=== PATIENT | female | born 1980 | race Caucasian/White ===

== ENCOUNTER 2017-01-07 | Outpatient (CLI) | payer OTHER ==
--- NOTE | 2017-01-17 11:27 | P.MSEPDOC ---
Presenting Problems - Arrival Data Date of Arrival on Unit: 01/07/17 Time of Arrival on Unit: 17:15 Mode of Transport: Ambulatory - Complaint OB-Reason for Admission/Chief Complaint: Decreased Movement Medical History - Information : 4 Para: 2 Term: 2 : 0 Abortions: Spontaneous or Elective: 1 Number of Living Children: 2 - Gestational Age Gestational Age by RUBINA (wks/days): 24 Weeks and 1 Days Review of Systems - Review of Systems Constitutional: No problems Breast: No problems ENT: No problems Cardiovascular: No problems Respiratory: No problems Gastrointestinal: No problems Genitourinary: No problems Musculoskeletal: No problems Neurological: No problems Skin: No problems Vital Signs - Temperature Temperature: 97.0 F Temperature Source: Temporal Artery Scan - Pulse Pulse Oximetery Pulse Rate: 85 Pulse Assessment Method: Pulse Oximetry - Respirations Respiratory Rate: 16 Oxygen Delivery Method: Room Air O2 Sat by Pulse Oximetry: 97 - Blood Pressure Right Arm Blood Pressure: 101/56 Blood Pressure Mean: 71 Blood Pressure Source: Automatic Cuff Medical Screen Scoring (Pre) - Cervical Exam Dilation: Exam Deferred - Uterine Contractions Frequency: N/A Duration: N/A Intensity: N/A - Maternal Vital Signs Maternal Temperature: N/A Maternal Blood Pressure: N/A Signs of Preeclampsia: N/A Maternal Respirations: N/A - Maternal Trauma Maternal Trauma: N/A - Assessment Baseline FHR: 145 Heart Rate - NICHD Category: Category I (Normal) = 0 NST: Reactive Position: N/A Station: N/A - Total Score Total Score (Pre): 0 - Level of Risk Level of Risk: Low (0-5) Medical Screen Scoring (Post) - Post Treatment Level of Risk Post Treatment Level of Risk: Low (0-5) Physician Notification (Post) - Physician Notified Physician Notified Date: 01/07/17 Physician Notified Time: 18:01 Spoke With: Dr Walker New Order Received: Yes - Notification Comment Comment: pt here for decreased movement. fht reasurring and baby is now moving per pt. Disposition - Disposition OB Disposition: Discharge to home Discharge Date: 01/07/17 Discharge Time: 16:10 I agree with the RN Medical Screening Exam: Yes Risk & Benefit of care provided described in d/c instruction: Yes Diagnosis: DECREASED MOVEMENTS, UNSP TRIMESTER, UNSP
== END 2017-01-07 18:10 | disposition home or self-care (01) ==
CPT/HCPCS: 99213

== ENCOUNTER 2017-01-11 08:25 | Emergency (ER) | payer OTHER ==
--- NOTE | 2017-01-11 08:54 | ED ---
URI HPI - General Chief Complaint: Upper Respiratory Infection Stated Complaint: cough Time Seen by Provider: 01/11/17 08:31 Source: patient, RN notes reviewed Mode of arrival: ambulatory Limitations: no limitations - History of Present Illness Initial Comments: 36-year-old female presents emergency Department chief complaint cough and congestion. Patient states started 3 days ago. Patient states that she does have a history of asthma and states that she uses her pro-air inhaler though she reports an ALLERGY to albuterol. Patient states she breaks out in hives from this. Patient denies fever, chills, headache, dizziness, chest pain. Patient states she does get and some cough is and which she has shortness of breath but she has no resting shortness of breath and no exertional shortness of breath. Patient states she is approximately 25 weeks along. Patient states her cough is nonproductive she states she actually is more sinus congestion than anything. She has not tried any [id number] cough and cold medications. - Related Data Home Medications Medication Instructions Recorded Confirmed Pnv,Calcium 72/Iron/Folic Acid 1 01/07/17 [ Plus Tablet] Allergies Allergy/AdvReac Type Severity Reaction Status Date / Time albuterol sulfate Allergy Rash/Hives/ Verified 01/11/17 08:30 [From Proventil HFA] SWELLING dimenhydrinate Allergy Swelling Verified 01/11/17 08:30 [From Dramamine] diphenhydramine HCl Allergy Rash/Hives Verified 01/11/17 08:30 [From Benadryl] latex Allergy Rash/Hives/ Verified 01/11/17 08:30 ITCHING meclizine Allergy Rash/Hives Verified 01/11/17 08:30 Review of Systems ROS Statement: Those systems with pertinent positive or pertinent negative responses have been documented in the HPI. ROS Other: All systems not noted in ROS Statement are negative. Past Medical History Past Medical History: Asthma History of Any Multi-Drug Resistant Organisms: None Reported Past Surgical History: Adenoidectomy, Ear Surgery Additional Past Surgical History / Comment(s): D&C Past Anesthesia/Blood Transfusion Reactions: No Reported Reaction Past Psychological History: No Psychological Hx Reported Smoking Status: Never smoker - Past Family History Mother Family Medical History: Cancer General Exam Limitations: no limitations General appearance: alert, in no apparent distress Head exam: Present: atraumatic, normocephalic, normal inspection Eye exam: Present: normal appearance, PERRL, EOMI. Absent: scleral icterus, conjunctival injection, periorbital swelling ENT exam: Present: normal exam, normal oropharynx, mucous membranes moist, TM's normal bilaterally, normal external ear exam Neck exam: Present: normal inspection, full ROM. Absent: tenderness, meningismus, lymphadenopathy Respiratory exam: Present: normal lung sounds bilaterally. Absent: respiratory distress, wheezes, rales, rhonchi, stridor Cardiovascular Exam: Present: regular rate, normal rhythm, normal heart sounds. Absent: systolic murmur, diastolic murmur, rubs, gallop, clicks GI/Abdominal exam: Present: soft, normal bowel sounds. Absent: distended, tenderness, guarding, rebound, rigid Course Vital Signs 01/11/17 01/11/17 08:28 08:41 Temperature 97.0 F L Pulse Rate 81 Respiratory 18 18 Rate Blood Pressure 105/61 O2 Sat by Pulse 100 Oximetry Medical Decision Making - Medical Decision Making 36-year-old male presents emergency room for cough congestion 2 days. Patient has a URI there is no evidence of acute bacterial infection. Patient's chest x- ray shows no acute abnormality. Patient advised take [id number] medications approved by her [employer]OR return parameters were discussed. Disposition Clinical Impression: Upper respiratory infection Disposition: HOME SELF-CARE Condition: Stable Instructions: Upper Respiratory Infection (ED) Additional Instructions: Please return to the Emergency Department if symptoms worsen or any other concerns. Referrals: Tyler Zhao MD [Primary Care Provider] - 1-2 days Time of Disposition: 09:46
--- NOTE | 2017-01-11 09:23 | XR ---
EXAMINATION TYPE: XR chest 2V DATE OF EXAM: 01/11/2017 HISTORY: cough. REFERENCE: Previous study dated 05/21/2015. FINDINGS: The lungs are clear. Pleural spaces are clear. The heart is not enlarged.. IMPRESSION: NORMAL CHEST.
[2017-01-11 09:55] VITALS: BP 88/51; PULSE 82; RESP 16; TEMP 98.6
== END 2017-01-11 10:12 | disposition home or self-care (01) ==
LOC: EC 08:25
DX: O99.512 Diseases of the respiratory system complicating pregnancy, second trimester (principal); J06.9 Acute upper respiratory infection, unspecified; Z79.899 Other long term (current) drug therapy; Z88.8 Allergy status to other drugs, medicaments and biological substances; Z91.040 Latex allergy status; Z3A.25 25 weeks gestation of pregnancy
CPT/HCPCS: 71020; 99283

== ENCOUNTER 2017-04-28 06:30 | Inpatient (IN) | payer OTHER ==
[2017-04-28] MEDS ORDERED: LIDOCAINE 1% (PF) 10 MG/ML (30 ML SDV) SQ PRN (06:55)
[2017-04-28] MEDS ORDERED: OXYTOCIN 10 UNIT/ML 1 ML VIAL IM PRN (06:55)
[2017-04-28] MEDS ORDERED: PENICILLIN G POTASSIUM 5,000,000 UNIT in DEXTROSE 5% IN WATER 100 ML IVPB STA ×2 (06:55)
[2017-04-28] MEDS ORDERED: CARBOPROST TROMETHAMINE 250 MCG/ML 1 ML AMP IM PRN (06:55)
[2017-04-28] MEDS ORDERED: METHYLERGONOVINE 0.2 MG/ML 1 ML AMP IM PRN (06:55)
[2017-04-28] MEDS ORDERED: OXYTOCIN 20 UNITS/1000 ML NS 1,000 ML IV SCH ×2 (07:00→10:45)
[2017-04-28] MEDS: LACTATED RINGERS 1,000 ML IV SCH ×2 (07:09→20:42)
[2017-04-28 07:24] VITALS: BMI 24.1
[2017-04-28 07:59] LABS: Basophils % (A) 0 %; Eosinophils # (A) 0.1 k/uL (0-0.7); Eosinophils % (A) 1 %; HCT 35.2 % (34.0-46.0); HGB 11.4 gm/dL (11.4-16.0); Lymphocytes # (A) 1.5 k/uL (1.0-4.8); Lymphocytes % (A) 14 %; MCH 29.1 pg (25.0-35.0); MCHC 32.3 g/dL (31.0-37.0); Mean Platelet Volume 7.7; Monocytes # (A) 0.5 k/uL (0-1.0); Monocytes % (A) 5 %; Neutrophils # (A) 8.6 k/uL (1.3-7.7); Neutrophils % (A) 79 %; Platelet Count 177 k/uL (150-450); RBC 3.92 m/uL (3.80-5.40); RDW 14.5 % (11.5-15.5); WBC 10.9 k/uL (3.8-10.6)
[2017-04-28] MEDS ORDERED: BUTORPHANOL 1 MG/ML 1 ML VIAL IV PRN (08:42)
--- NOTE | 2017-04-28 08:48 | P.HPOB ---
History of Present Illness H&P Date: 04/28/17 Chief Complaint: 39+ weeks, elective induction The patient is a 36-year-old 4 para 1112 admitted at 39-3/7 weeks as established by a 16 week ultrasound done in [place]. She is admitted for elective induction of labor with all signs reassuring. Her has been uncomplicated aside from initial difficulty in dating the . She did test positive for group B strep. On labor and delivery, she is undergone artificial rupture of membranes demonstrating clear fluid. Obstetrical history 4 para 1112 with 1 term delivery without complications and one 35 week delivery additionally without complications. Current statistics are listed in history of present illness. EDC of 05/02/2017 was established by 16 week ultrasound. Laboratory workup on straights of blood type of A+ with a negative antibody screen. Rubella status is nonimmune. The remainder of her laboratory workup was within normal limits. One hour Glucola was normal and group B strep is positive. Gynecologic history is unremarkable with no history of infections to include STDs recently. Review of Systems Review of systems is confined to history of present illness. Past Medical History Past Medical History: No Reported History, Asthma Additional Past Medical History / Comment(s): Hypoglycemia History of Any Multi-Drug Resistant Organisms: None Reported Past Surgical History: Adenoidectomy, Ear Surgery Additional Past Surgical History / Comment(s): D&C Past Anesthesia/Blood Transfusion Reactions: No Reported Reaction Past Psychological History: No Psychological Hx Reported Smoking Status: Never smoker Past Alcohol Use History: None Reported Additional Past Alcohol Use History / Comment(s): QUIT SMOKIN 2010, STARTED SMOKING AGE 18, LESS THAN A PACK A WEEK Past Drug Use History: None Reported - Past Family History Mother Family Medical History: Cancer Medications and Allergies Home Medications Medication Instructions Recorded Confirmed Type Ergocalciferol (Vitamin D2) 50,000 unit PO DAILY 03/12/17 04/28/17 History [Vitamin D2] Loratadine [Claritin] 10 mg PO DAILY 03/12/17 04/28/17 History Omeprazole [PriLOSEC] 40 mg PO DAILY 03/12/17 04/28/17 History Pedi Multivit No.25/Folic Acid 1 tab PO DAILY 04/28/17 04/28/17 History [Flintstones Multivit Chew Tab] Allergies Allergy/AdvReac Type Severity Reaction Status Date / Time albuterol sulfate Allergy Rash/Hives/ Verified 04/28/17 06:52 [From Proventil HFA] SWELLING dimenhydrinate Allergy Swelling Verified 04/28/17 06:52 [From Dramamine] diphenhydramine HCl Allergy Rash/Hives Verified 04/28/17 06:52 [From Benadryl] latex Allergy Rash/Hives/ Verified 04/28/17 06:52 ITCHING meclizine Allergy Rash/Hives Verified 04/28/17 06:52 Exam - Vital Signs Vital signs: Vital Signs Temp Pulse Resp BP Pulse Ox 04/28/17 07:17 97.6 F 82 16 109/64 98 Intake and Output 04/27/17 04/28/17 04/28/17 22:59 06:59 14:59 Other: Weight 59.874 kg 59.874 kg Patient Weight 04/29/17 06:59 Weight 59.874 kg In general, this is a well-developed, well-nourished white female in no acute distress. Her heart has a regular rhythm and rate without murmur. Her lungs are clear to auscultation bilaterally in all rush. Her abdomen is gravid, nondistended, has normal active bowel sounds, is soft, nontender, and without any palpable masses aside from the uterine fundus. Her extremities are without any cyanosis, clubbing, or edema and are nontender to palpation bilaterally. Digital cervical examination demonstrates her cervix to be 3+ centimeters dilated, 70% effaced, with the vertex in presentation at -1-2 station. Artificial rupture of membranes is carried out demonstrating clear fluid. Results Result Diagrams: 04/28/17 06:57 Abnormal Lab Results - Last 24 Hours (Table) 04/28/17 Range/Units 06:57 WBC 10.9 H (3.8-10.6) k/uL Neutrophils # 8.6 H (1.3-7.7) k/uL Assessment and Plan (1) Term Current Visit: Yes Status: Acute Code(s): Z34.80 - ENCOUNTER FOR SUPRVSN OF NORMAL , UNSP TRIMESTER SNOMED Code(s): 36155913 (2) Group B streptococcal carriage complicating Current Visit: Yes Status: Acute Code(s): O99.820 - STREPTOCOCCUS B CARRIER STATE COMPLICATING SNOMED Code(s): 915874901728272 Plan: The patient has been admitted for elective induction of labor understanding the slightly increased risk for delivery. Pitocin augmentation has been started and antibody prophylaxis started for group B strep as well. She will have close maternal and surveillance and expectant management will be practiced. She is a good candidate for either IV or epidural analgesia, whichever she may choose.
[2017-04-28] MEDS ORDERED: ZOLPIDEM 5 MG TAB PO PRN (10:35)
[2017-04-28] MEDS ORDERED: BENZOCAINE/MENTHOL SPRAY 1 GM/SPRAY AEROSOL TOPICAL PRN (10:35)
[2017-04-28] MEDS ORDERED: WITCH HAZEL 1 EACH MED..PAD TOPICAL PRN (10:35)
[2017-04-28] MEDS ORDERED: SIMETHICONE 80 MG CHEWABLE PO PRN (10:35)
[2017-04-28] MEDS ORDERED: ACETAMINOPHEN TAB 325 MG TAB PO PRN (10:35)
[2017-04-28] MEDS ORDERED: HYDROCORTISONE 2.5% RECTAL CREAM 30 GM TUBE RECTAL PRN (10:35)
[2017-04-28] MEDS ORDERED: IBUPROFEN 600 MG TAB PO PRN (10:35)
[2017-04-28] MEDS ORDERED: Acetaminophen-Codeine 300-30mg TAB PO PRN ×2 (10:35)
--- NOTE | 2017-04-28 10:43 | P.PROBDLV ---
Vaginal Delivery Note - . Vaginal Delivery Note: The patient is a 36-year-old 4 para 1112 admitted at 39-3/7 weeks by second trimester ultrasound. She is admitted for elective induction with all signs reassuring. Her has been essentially uncomplicated though she did of have late onset of care and some issues with dating the when she first arrived. Is ultimately cleared up after retrieval of an ultrasound at 17 weeks done in [place]. On labor and delivery, all signs were reassuring as noted above. She had Pitocin augmentation started and underwent artificial rupture of membranes demonstrating clear fluid. She had previously had antibody prophylaxis started for group B strep positivity. She made rapid progress through the latent and active phase of labor to complete and then pushed over the course of 2 contractions to a normal spontaneous vaginal delivery of a viable 6 lbs. 8 oz. baby boy with Apgars of 9 at 1 minute and 9 at 5 minutes delivered in the direct occiput anterior position. The placenta was delivered spontaneously, intact, and grossly normal with a grossly normal three-vessel cord inserted approximately 3-4 cm from the margin of the placental disc. There were no lacerations of the perineum, vagina, or cervix. Estimated blood loss for the case was 250 mL. There were no complications. All sponge, instrument, and needle counts were correct. Both mother and infant are resting comfortably in recovery though the has been taken to the nursery to be drawn for group B strep labs.
[2017-04-28] MEDS ORDERED: PENICILLIN G POTASSIUM 2,500,000 UNIT in DEXTROSE 5% IN WATER 100 ML IVPB SCH ×2 (11:00)
[2017-04-28] MEDS ORDERED: MEASLES-MUMPS-RUBELLA VACC/PF 12,500 UNIT/0.5 ML VIAL SQ ONE (12:01)
[2017-04-28] MEDS: SENNOSIDES-DOCUSATE SODIUM 1 EACH TAB PO SCH (20:42)
--- NOTE | 2017-04-29 10:58 | P.PNOBGVD ---
Subjective - Subjective Patient reports: Reports appetite normal, Reports voiding normally, Reports pain well controlled, Reports ambulating normally : doing well Objective - Latest Vital Signs Latest vital signs: Vital Signs Temp Pulse Resp BP Pulse Ox 04/29/17 08:00 98.2 F 87 16 128/54 04/29/17 04:00 98.1 F 87 18 117/52 04/29/17 00:00 98.0 F 76 16 112/55 04/28/17 20:00 97.4 F L 72 16 100/59 04/28/17 16:00 99 F 82 16 98/57 04/28/17 12:32 97.8 F 79 17 99/50 99 04/28/17 12:02 67 18 95/61 04/28/17 11:32 73 18 100/59 04/28/17 11:17 68 18 96/52 04/28/17 11:02 64 17 100/59 - Exam Extremities: Present: normal Abdomen: Present: normal appearance, soft Uterus: Present: normal, firm (The uterine fundus as tonic and nontender below the umbilicus.) Assessment and Plan (1) Term Current Visit: Yes Status: Acute Code(s): Z34.80 - ENCOUNTER FOR SUPRVSN OF NORMAL , UNSP TRIMESTER SNOMED Code(s): 13111574 (2) Group B streptococcal carriage complicating Current Visit: Yes Status: Acute Code(s): O99.820 - STREPTOCOCCUS B CARRIER STATE COMPLICATING SNOMED Code(s): 980075081468076 (3) Normal spontaneous vaginal delivery Current Visit: Yes Status: Acute Code(s): O80 - ENCOUNTER FOR FULL-TERM UNCOMPLICATED DELIVERY SNOMED Code(s): 49404950 Plan: As the infant is being observed for 48 hours secondary to inadequate antibiotic prophylaxis for group B strep, the patient will remain in the hospital until tomorrow morning at which time she will likely be discharged pending complications. Continue routine care.
[2017-04-29] MEDS: SENNOSIDES-DOCUSATE SODIUM 1 EACH TAB PO SCH ×2 (23:02→23:03)
[2017-04-30 08:16] VITALS: RESP 16
[2017-04-30] MEDS: SENNOSIDES-DOCUSATE SODIUM 1 EACH TAB PO SCH (08:16)
--- NOTE | 2017-04-30 08:40 | P.DS ---
Providers Date of admission: 04/28/17 06:30 Expected date of discharge: 04/30/17 Attending physician: Xander Walker Primary care physician: Tyler Zhao - Discharge Diagnosis(es) (1) Term Current Visit: Yes Status: Acute (2) Group B streptococcal carriage complicating Current Visit: Yes Status: Acute (3) Normal spontaneous vaginal delivery Current Visit: Yes Status: Acute Hospital Course: The patient is a 36-year-old 4 para 1112 admitted at 39-3/7 weeks by good dating parameters. She is admitted for an elective induction with all signs reassuring. Her has been uncomplicated and group B strep status is positive. On labor and delivery, she had antibiotic prophylaxis started for group B strep and underwent artificial rupture of membranes with Pitocin augmentation. She made very rapid progress through the latent and active phase of labor to complete and then pushed to a normal spontaneous vaginal delivery of a viable 6 lbs. 8 oz. baby boy with Apgars of 9 at 1 minute and 9 at 5 minutes. Her course was unremarkable vital signs remaining stable and her temperature was afebrile throughout. She did undergo a director social consult as she does not have possession of either for previous 2 children. She was deemed stable for discharge by day #2 was discharged home to follow-up in the office in 6 weeks' time routinely. Discharge instructions included calling for any significantly increased bleeding or foul-smelling lochia, significantly increased fever or abdominal pain, perineal complaints, breast complaints, or anything else that concerned her. She was additionally instructed to have nothing in the vagina for at least 6 weeks time to include intercourse. She understood her instructions and agrees to follow up as noted above. She has requested following delivery to undergo permanent sterilization with tubal ligation. She will stop at the office to sign consent to that effect in this will be carried out around the 6 week visit. Maternal blood type is A+ and rubella status is nonimmune. She therefore was to receive the MMR vaccination prior to discharge. Procedures: #1. Antibiotic prophylaxis #2. Pitocin augmentation #3. Artificial rupture of membranes #4. Normal spontaneous vaginal delivery Patient Condition at Discharge: Good Plan - Discharge Summary New Discharge Prescriptions: No Action Omeprazole [PriLOSEC] 40 mg PO DAILY Loratadine [Claritin] 10 mg PO DAILY Ergocalciferol (Vitamin D2) [Vitamin D2] 50,000 unit PO DAILY Pedi Multivit No.25/Folic Acid [Flintstones Multivit Chew Tab] 1 tab PO DAILY Discharge Medication List Ergocalciferol (Vitamin D2) [Vitamin D2] 50,000 unit PO DAILY 03/12/17 [History] Loratadine [Claritin] 10 mg PO DAILY 03/12/17 [History] Omeprazole [PriLOSEC] 40 mg PO DAILY 03/12/17 [History] Pedi Multivit No.25/Folic Acid [Flintstones Multivit Chew Tab] 1 tab PO DAILY [History] Follow up Appointment(s)/Referral(s): Xander Walker MD [STAFF PHYSICIAN] - 6 Weeks Discharge Disposition: HOME SELF-CARE
[2017-04-30 15:17] VITALS: BP 101/66; PULSE 90; TEMP 97.9
== END 2017-04-30 16:51 | disposition home or self-care (01) | DRG 775 ==
LOC: 4FBP 06:30
PROVIDERS: ADMIT Obstetrics & Gynecology; ATTEND Obstetrics & Gynecology
PROC: 10E0XZZ Delivery of Products of Conception, External Approach (ICD-10-PCS; principal; 2017-04-28)
PROC: 10907ZC Drainage of Amniotic Fluid, Therapeutic from Products of Conception, Via Natural or Artificial Opening (ICD-10-PCS; principal; 2017-04-28)
PROC: 3E033VJ Introduction of Other Hormone into Peripheral Vein, Percutaneous Approach (ICD-10-PCS; principal; 2017-04-28)
DX: O99.824 Streptococcus B carrier state complicating childbirth (principal); Z37.0 Single live birth; Z3A.39 39 weeks gestation of pregnancy; Z87.891 Personal history of nicotine dependence; Z79.899 Other long term (current) drug therapy; Z91.040 Latex allergy status; Z88.8 Allergy status to other drugs, medicaments and biological substances
CPT/HCPCS: 85025; 88307; 90471; 90707

== ENCOUNTER 2017-05-04 12:08 | Emergency (ER) | payer OTHER ==
[2017-05-04] MEDS ORDERED: IPRATROPIUM 0.5 MG/2.5 ML NEBU INHALATION STA (12:31)
--- NOTE | 2017-05-04 12:33 | ED ---
General Adult HPI - General Chief complaint: Upper Respiratory Infection Stated complaint: Cough/Chills Time Seen by Provider: 05/04/17 12:25 Source: patient, RN notes reviewed Mode of arrival: ambulatory Limitations: no limitations - History of Present Illness Initial comments: Patient is a pleasant 36-year-old female presenting to the emergency Department with cough and chest congestion. Symptoms have been present close to a week. Cough has been productive with occasional yellow sputum. Patient does have some mild sinus congestion. Patient has had some chills, no fever. Patient does have a history of asthma. Patient has been using her inhaler without much improvement. - Related Data Home Medications Medication Instructions Recorded Confirmed Ergocalciferol (Vitamin D2) 50,000 unit PO TU 03/12/17 05/04/17 [Vitamin D2] Loratadine [Claritin] 10 mg PO DAILY 03/12/17 05/04/17 Omeprazole [PriLOSEC] 40 mg PO DAILY 03/12/17 05/04/17 Pedi Multivit No.25/Folic Acid 1 tab PO DAILY 04/28/17 05/04/17 [Flintstones Multivit Chew Tab] Beclomethasone Dipropionate [Qvar 2 puff INHALATION RT-BID 05/04/17 05/04/17 80 mcg] Previous Rx's Medication Instructions Recorded Ipratropium [place] [Atrovent Hfa] 2 puff INHALATION QID #1 inhaler 05/04/17 predniSONE 20 mg PO BID #10 tab 05/04/17 Allergies Allergy/AdvReac Type Severity Reaction Status Date / Time albuterol sulfate Allergy Rash/Hives/ Verified 05/04/17 12:42 [From Proventil HFA] SWELLING dimenhydrinate Allergy Swelling Verified 05/04/17 12:42 [From Dramamine] diphenhydramine HCl Allergy Rash/Hives Verified 05/04/17 12:42 [From Benadryl] latex Allergy Rash/Hives/ Verified 05/04/17 12:42 ITCHING meclizine Allergy Rash/Hives Verified 05/04/17 12:42 Review of Systems ROS Statement: Those systems with pertinent positive or pertinent negative responses have been documented in the HPI. ROS Other: All systems not noted in ROS Statement are negative. Constitutional: Reports: chills. Denies: fever Eyes: Denies: eye pain ENT: Reports: congestion. Denies: ear pain Respiratory: Reports: cough, dyspnea Cardiovascular: Denies: chest pain Endocrine: Denies: fatigue Gastrointestinal: Denies: abdominal pain Genitourinary: Denies: dysuria Musculoskeletal: Denies: back pain Skin: Denies: rash Neurological: Denies: weakness Past Medical History Past Medical History: Asthma Additional Past Medical History / Comment(s): Hypoglycemia History of Any Multi-Drug Resistant Organisms: None Reported Past Surgical History: Adenoidectomy, Ear Surgery Additional Past Surgical History / Comment(s): D&C Past Anesthesia/Blood Transfusion Reactions: No Reported Reaction Past Psychological History: No Psychological Hx Reported Smoking Status: Never smoker Past Alcohol Use History: None Reported Past Drug Use History: None Reported - Past Family History Mother Family Medical History: Cancer General Exam Limitations: no limitations General appearance: alert, in no apparent distress Head exam: Present: atraumatic Eye exam: Present: normal appearance, PERRL ENT exam: Present: normal oropharynx Neck exam: Present: normal inspection Respiratory exam: Present: wheezes (Mild expiratory wheeze) Cardiovascular Exam: Present: regular rate, normal rhythm GI/Abdominal exam: Present: soft. Absent: tenderness Extremities exam: Present: normal inspection Neurological exam: Present: alert Psychiatric exam: Present: normal affect, normal mood Skin exam: Present: normal color Course Vital Signs 05/04/17 05/04/17 12:12 12:37 Temperature 97.8 F Pulse Rate 61 84 Respiratory 18 16 Rate Blood Pressure 113/64 O2 Sat by Pulse 100 Oximetry Medical Decision Making - Medical Decision Making Patient reevaluated and resting comfortably in bed. Patient updated on results. Patient comfortable with discharge. - Lab Data Lab Results 05/04/17 Range/Units 12:37 Influenza Type A RNA Not Detected (Not Detectd) Influenza Type B (PCR) Not Detected (Not Detectd) - Radiology Data Radiology results: image reviewed (Chest x-ray shows no acute process) Disposition Clinical Impression: Bronchitis Disposition: HOME SELF-CARE Condition: Stable Instructions: Acute Bronchitis (ED) Additional Instructions: Please follow-up with your primary care doctor in the next day or 2 for recheck. Return for focal to breathing, fevers, worsening or changing symptoms or other concerns. Prescriptions: Ipratropium [place] [Atrovent Hfa] 2 puff INHALATION QID #1 inhaler predniSONE 20 mg PO BID #10 tab Referrals: Tyler Zhao MD [Primary Care Provider] - 1-2 days Time of Disposition: 13:36
--- NOTE | 2017-05-04 13:16 | XR ---
EXAMINATION TYPE: XR chest 2V DATE OF EXAM: 05/04/2017 HISTORY: Chest Pain. REFERENCE: Previous study dated 01/11/2017. FINDINGS: There is a mild pectus excavatum deformity. The lungs are clear. Pleural space are clear. Heart size is normal. IMPRESSION: NO ACUTE INTRATHORACIC ABNORMALITY.
[2017-05-04 13:49] VITALS: BP 123/61; PULSE 69; RESP 18; TEMP 97.3
== END 2017-05-04 13:49 | disposition home or self-care (01) ==
LOC: EC 12:08
DX: J40 Bronchitis, not specified as acute or chronic (principal); R09.81 Nasal congestion; Z79.51 Long term (current) use of inhaled steroids; Z79.899 Other long term (current) drug therapy; Z88.8 Allergy status to other drugs, medicaments and biological substances; Z91.040 Latex allergy status
CPT/HCPCS: 71046; 87502; 94640; 99284

== ENCOUNTER → 2017-06-17 | Outpatient (CLI) | payer OTHER ==
[2017-06-17 13:13] LABS: Basophils % (A) 0 %; Eosinophils # (A) 0.2 k/uL (0-0.7); Eosinophils % (A) 3 %; HCT 35.8 % (34.0-46.0); HGB 11.8 gm/dL (11.4-16.0); Lymphocytes # (A) 3.1 k/uL (1.0-4.8); Lymphocytes % (A) 42 %; MCH 29.3 pg (25.0-35.0); MCV 88.7 fL (80.0-100.0); Monocytes # (A) 0.4 k/uL (0-1.0); Monocytes % (A) 6 %; Neutrophils # (A) 3.4 k/uL (1.3-7.7); Neutrophils % (A) 47 %; Platelet Count 285 k/uL (150-450); RBC 4.03 m/uL (3.80-5.40); RDW 13.5 % (11.5-15.5); WBC 7.3 k/uL (3.8-10.6)
== END | disposition home or self-care (01) ==
LOC: LABPAT 12:20
PROVIDERS: ATTEND Obstetrics & Gynecology
DX: Z01.812 Encounter for preprocedural laboratory examination (principal); Z64.0 Problems related to unwanted pregnancy
CPT/HCPCS: 36415; 85025

== ENCOUNTER 2017-07-01 09:50 | Day surgery (SDC) | payer OTHER ==
[2017-06-25 16:45] VITALS: BMI 22.1
[~2017-07-01 09:50] MED LIST: DEXAMETHASONE SOD PHOSPHATE 10 MG/ML 1 ML VIAL IV ONE; LACTATED RINGERS 1,000 ML IV SCH; LIDOCAINE 1% 20 ML VIAL (10MG/ML) FOR IV START INTRADERMA PRN; MIDAZOLAM 2 MG/2 ML VIAL IV PRN; MORPHINE SULFATE 4 MG/ML SYRINGE IV PRN; ONDANSETRON 4 MG/2 ML VIAL IVP ONE; Pre Op ABX Message 1 EACH MISC MISCELLANE ONE; SCOPOLAMINE 1.5MG/72HR PATCH TRANSDERM ONE
[2017-07-01 10:19] VITALS: RESP 16
[2017-07-01 10:23] LABS: Glucose,Whole Blood 88 mg/dL (75-99)
[2017-07-01] MEDS ORDERED: BUPIVACAINE (PF) 0.5% 30 ML VIAL SQ ONE ×2 (12:37→13:24)
[2017-07-01] MEDS ORDERED: SUCCINYLCHOLINE CHLORIDE 100 MG/5 ML SYR IV ONE (12:55)
[2017-07-01] MEDS ORDERED: PROPOFOL 10 MG/ML 20 ML VIAL IV ONE (12:55)
[2017-07-01] MEDS ORDERED: NEOSTIGMINE 1 MG/ML 10 ML VIAL ONE (12:55)
[2017-07-01] MEDS ORDERED: KETOROLAC 30 MG/ML 1 ML VIAL ONE (12:55)
[2017-07-01] MEDS ORDERED: GLYCOPYRROLATE 0.2 MG/ML 2 ML VIAL ONE (12:55)
[2017-07-01] MEDS ORDERED: fentaNYL (PF) 50 MCG/ML 2 ML AMP ONE (12:55)
[2017-07-01] MEDS ORDERED: ROCURONIUM BROMIDE 10 MG/ML 10 ML VIAL IV ONE (12:55)
[2017-07-01] MEDS ORDERED: MIDAZOLAM 2 MG/2 ML VIAL ONE (12:55)
[2017-07-01] MEDS ORDERED: Acetaminophen-Codeine 300-30mg TAB PO PRN ×2 (13:25)
[2017-07-01] MEDS ORDERED: IBUPROFEN 600 MG TAB PO PRN (13:25)
[2017-07-01] MEDS ORDERED: METOCLOPRAMIDE 5 MG/ML 2 ML VIAL IVP PRN (13:25)
[2017-07-01] MEDS ORDERED: SIMETHICONE 80 MG CHEWABLE PO PRN (13:25)
[2017-07-01] MEDS ORDERED: ONDANSETRON 4 MG/2 ML VIAL IVP PRN (13:25)
[2017-07-01] MEDS ORDERED: KETOROLAC 30 MG/ML 1 ML VIAL IVP PRN (13:25)
[2017-07-01] MEDS ORDERED: LACTATED RINGERS 1,000 ML IV SCH (13:30)
--- NOTE | 2017-07-01 13:33 | P.OP ---
Date of Procedure: 07/01/17 Preoperative Diagnosis: #1. Undesired fertility #2. Multiparity Postoperative Diagnosis: Same Procedure(s) Performed: #1. Laparoscopic bilateral tubal occlusion using Filshie clips Anesthesia: GARTH Surgeon: Xander Walker Estimated Blood Loss (ml): 5 IV fluids (ml): 200 Urine output (ml): 100 Pathology: none sent Condition: stable Disposition: PACU Operative Findings: Preoperative pelvic examination demonstrated a roughly 5 week retroverted mobile normal shaped uterus with normal adnexa bilaterally. Intraoperatively, these findings were confirmed. The uterus remained relatively floppy given her recent state. The uterus, tubes, and ovaries were entirely normal to inspection. There is no evidence of any pathology in the pelvis to include endometriosis. The small bowel, large bowel, appendix, liver, gallbladder, diaphragm were all normal to inspection. A Filshie clip was placed firmly across each fallopian tube in the isthmic portion bilaterally. Description of Procedure: The patient was prepped and draped in usual fashion after general endotracheal anesthesia was administered by the anesthesiologist. A speculum was placed in the anterior lip of the cervix grasped with a single-tooth tenaculum allowing placement of an acorn cannula. The bladder was drained of approximately 100 mL of clear lit urine. Attention was turned to the abdomen where a 5 mm incision was made in the vertical fold of the umbilicus lung insertion of a 5 mm optical trocar under direct visualization without difficulty. A pneumoperitoneum was established. Trendelenburg positioning was utilized and a site selected in the midline approximately 4-5 cm above the pubic symphysis where an 8 mm incision was made in the transverse plane allowing insertion of an 8 mm trocar under direct vision station without difficulty. The blunt probe and Trendelenburg positioning were utilized to sweep the bowel from the pelvis. The findings are as noted above. After ensuring normal findings, the probe was replaced with a Filshie clip applicator which was utilized to place a clip across the isthmic portion of the right fallopian tube approximately 2-3 cm from the cornu. This procedure was carried out on the left side similarly without difficulty. Reexamination of the pelvis and abdomen demonstrated no further abdomen. The instrumentation was removed and the pneumoperitoneum evacuated entirely through the trochars and incisions. On the incisions were closed with interrupted subcuticular stitches of 4-0 Vicryl followed by infusion of approximate 5 mL at each incision site of half percent Marcaine without epinephrine. Steri-Strips are then applied as well as Band-Aids. Estimated blood loss for the entire case was less than 5 mL. There were no complications. All sponge, instrument, and needle counts were correct. The patient tolerated the procedure well and proceeded to the recovery room in stable condition.
[2017-07-01 14:06] VITALS: TEMP 99.2
[2017-07-01 14:37] VITALS: BP 108/74; PULSE 50
== END 2017-07-01 15:00 | disposition home or self-care (01) ==
LOC: OR 09:50
PROVIDERS: ATTEND Obstetrics & Gynecology
DX: Z30.2 Encounter for sterilization (principal); J45.909 Unspecified asthma, uncomplicated; K21.9 Gastro-esophageal reflux disease without esophagitis; E55.9 Vitamin D deficiency, unspecified; Z91.040 Latex allergy status; Z88.8 Allergy status to other drugs, medicaments and biological substances; Z79.51 Long term (current) use of inhaled steroids; Z79.899 Other long term (current) drug therapy; Z86.19 Personal history of other infectious and parasitic diseases; Z83.3 Family history of diabetes mellitus
CPT/HCPCS: 58671; 81025; J2250; J1100; J2710; J2405; J3010; J1885; J0330; J2704

== ENCOUNTER 2017-12-16 10:05 | Day surgery (SDC) | payer OTHER ==
[2017-12-11 14:27] VITALS: BMI 21.0
[~2017-12-16 10:05] MED LIST changes: -DEXAMETHASONE SOD PHOSPHATE 10 MG/ML 1 ML VIAL IV ONE; -MIDAZOLAM 2 MG/2 ML VIAL IV PRN; -MORPHINE SULFATE 4 MG/ML SYRINGE IV PRN; -ONDANSETRON 4 MG/2 ML VIAL IVP ONE; -Pre Op ABX Message 1 EACH MISC MISCELLANE ONE; -SCOPOLAMINE 1.5MG/72HR PATCH TRANSDERM ONE
[2017-12-16 10:30] VITALS: RESP 18; TEMP 97.5
[2017-12-16] MEDS ORDERED: LACTATED RINGERS 1,000 ML IV ONE (10:36)
[2017-12-16] MEDS ORDERED: PROPOFOL 10 MG/ML 20 ML VIAL IV ONE (10:51)
[2017-12-16 11:47] VITALS: BP 92/56; PULSE 66
--- NOTE | 2017-12-16 12:16 | P.PCN ---
Date of Procedure: 12/16/17 Procedure(s) Performed: Procedure: Esophagogastroduodenoscopy and biopsy. Preoperative diagnosis: Epigastric pain and atypical chest pain. Postoperative diagnosis: 1. Small sliding hiatal hernia with no obvious esophagitis or complicated reflux disease. 2. Mild antral gastritis. 3. Multiple biopsies obtained from the duodenum, antrum and esophagus. Preparation and sedation: Was provided by anesthesia. Brief clinical history: The patient is a 57-year-old female who I have evaluated in the office last month for chronic reflux symptoms and epigastric and atypical chest pains. She reported occasional dysphagia. The patient has been on omeprazole and she takes it twice a day at times for symptom control. Her mother had Prasad's esophagus. The patient had acid reflux for 2-3 years and her epigastric and atypical chest pains on more recent symptoms. Procedure: With the patient on her left lateral decubitus position and a there was a small sliding hiatal hernia but no obvious esophagitis or complicated reflux disease. The endoscope was then passed into the stomach which was insufflated with air and inspected in detail including the retroflex view in the cardia. There was some mottling and erythema in the antrum but no ulcers or erosions. Pyloric channel, duodenal bulb, post bulbar area and descending duodenum appeared within normal limits. I obtained biopsies from the duodenum, antrum and esophagus then the endoscope was withdrawn. The patient tolerated the procedure well. Plan: The patient was reassured. Discussed dietary measures and antireflux measures. She will continue with current therapy and further plans can be made based on her course and biopsy results.
== END 2017-12-16 11:48 | disposition home or self-care (01) ==
LOC: ORWHC2ENDO 10:05
DX: K29.70 Gastritis, unspecified, without bleeding (principal); K21.0 Gastro-esophageal reflux disease with esophagitis; K44.9 Diaphragmatic hernia without obstruction or gangrene; J45.909 Unspecified asthma, uncomplicated; Z88.8 Allergy status to other drugs, medicaments and biological substances; Z91.040 Latex allergy status; Z79.899 Other long term (current) drug therapy; Z79.51 Long term (current) use of inhaled steroids
CPT/HCPCS: 81025; 88305; 43239; J2704

== ENCOUNTER 2019-05-14 12:11 | Emergency (ER) | payer OTHER ==
--- NOTE | 2019-05-14 13:03 | ED ---
General Adult HPI - General Chief complaint: ENT Stated complaint: Left ear pain Time Seen by Provider: 05/14/19 12:43 Source: patient, RN notes reviewed Mode of arrival: ambulatory Limitations: no limitations - History of Present Illness Initial comments: 38-year-old female with a past medical history of tympanostomy of the left ear presents to the emergency department for a chief complaint of fullness of the left ear. Patient states she has had fullness in the left ear for the past few weeks. States she had this tube placed 2016 but can no longer follow-up with that ENT due to an insurance change. States she does have an appointment with another ENT in about 1.5 weeks but did not want to wait any longer. Denies any severe pain. Denies any drainage from the left ear. Denies any fevers or chills. Denies any pain in the right ear. States her hearing is somewhat diminished in the left ear because of this. Denies dizziness.Patient has no other complaints at this time including shortness of breath, chest pain, abdominal pain, nausea or vomiting, headache, or visual changes. - Related Data Home Medications Medication Instructions Recorded Confirmed Ergocalciferol (Vitamin D2) 50,000 unit PO Q30D 03/12/17 12/11/17 [Vitamin D2] Loratadine [Claritin] 10 mg PO DAILY 03/12/17 12/11/17 Omeprazole [PriLOSEC] 40 mg PO QAM 03/12/17 12/11/17 Beclomethasone Dipropionate [Qvar 2 puff INHALATION RT-BID 05/04/17 12/11/17 80 mcg] Pedi Multivit No.25/Folic Acid 1 tab PO DAILY 06/25/17 12/11/17 [Flintstones Multivit Chew Tab] Ibuprofen [Motrin] 600 mg PO Q8HR PRN 08/08/17 12/11/17 Previous Rx's Medication Instructions Recorded Amoxicillin/Potassium Clav 1 tab PO Q12HR #20 tab 05/14/19 [Augmentin 875-125 Tablet] Fluticasone Nasal [place] [Flonase 1 spray EA NOSTRIL DAILY 7 Days #1 05/14/19 Nasal [place]] bottle Allergies Allergy/AdvReac Type Severity Reaction Status Date / Time albuterol sulfate Allergy difficulty Verified 05/14/19 12:16 [From Proventil HFA] breathing,Rash/Hives/SWELLING dimenhydrinate Allergy Rash/Hives Verified 05/14/19 12:16 [From Dramamine] diphenhydramine HCl Allergy difficulty Verified 05/14/19 12:16 [From Benadryl] breathing,Rash/Hives latex Allergy difficulty Verified 05/14/19 12:16 breathing,Rash/Hives/ITCHING meclizine Allergy Rash/Hives Verified 05/14/19 12:16 Review of Systems ROS Statement: Those systems with pertinent positive or pertinent negative responses have been documented in the HPI. ROS Other: All systems not noted in ROS Statement are negative. Past Medical History Past Medical History: Asthma, GERD/Reflux Additional Past Medical History / Comment(s): Hypoglycemia History of Any Multi-Drug Resistant Organisms: None Reported Past Surgical History: Adenoidectomy, Ear Surgery, Tubal Ligation Additional Past Surgical History / Comment(s): D&C; Tube in L Ear Past Anesthesia/Blood Transfusion Reactions: No Reported Reaction Past Psychological History: No Psychological Hx Reported Smoking Status: Former smoker Past Alcohol Use History: None Reported Past Drug Use History: None Reported - Past Family History Mother Family Medical History: Cancer General Exam Limitations: no limitations General appearance: alert, in no apparent distress Head exam: Present: atraumatic, normocephalic, normal inspection Eye exam: Present: normal appearance, PERRL, EOMI. Absent: scleral icterus, conjunctival injection, periorbital swelling ENT exam: Present: normal exam, normal oropharynx, mucous membranes moist, normal external ear exam. Absent: TM's normal bilaterally (Patient has A tympanostomy noted of the left tympanic membrane. However there is erythema of the tympanic membrane. There is no purulent discharge.) Neck exam: Present: normal inspection, full ROM. Absent: tenderness, meningismus, lymphadenopathy Respiratory exam: Present: normal lung sounds bilaterally. Absent: respiratory distress, wheezes, rales, rhonchi, stridor Cardiovascular Exam: Present: regular rate, normal rhythm, normal heart sounds. Absent: systolic murmur, diastolic murmur, rubs, gallop, clicks Course Vital Signs 05/14/19 12:16 Temperature 98.3 F Pulse Rate 86 Respiratory 18 Rate Blood Pressure 103/58 O2 Sat by Pulse 100 Oximetry Medical Decision Making - Medical Decision Making HPI physical exam integument. Vitals are stable. Patient will be treated with Augmentin and Flonase for otitis media. She does also have some congestion. I recommend that she follow up with her primary care in 1-2 days and her ENT as soon as possible. She will call today to see if she did have an earlier point. She has any worsening symptoms she will return here to the emergency department. Disposition Clinical Impression: Otitis media Disposition: HOME SELF-CARE Condition: Good Instructions (If sedation given, give patient instructions): Ear Infection (ED) Additional Instructions: Please take antibiotic as directed. Please use nasal spray as directed. Follow up with primary care in 1-2 days. Follow up with your ENT physician as soon as possible. Return here to the emergency department if you develop any worsening symptoms. Prescriptions: Amoxicillin/Potassium Clav [Augmentin 875-125 Tablet] 1 tab PO Q12HR #20 tab Fluticasone Nasal [place] [Flonase Nasal [place]] 1 spray EA NOSTRIL DAILY 7 Days #1 bottle Is patient prescribed a controlled substance at d/c from ED?: No Referrals: Rosalie Lock MD [Primary Care Provider] - 1-2 days Time of Disposition: 13:02
[2019-05-14 13:19] VITALS: BP 110/67; PULSE 81; RESP 16; TEMP 98.1
== END 2019-05-14 13:19 | disposition home or self-care (01) ==
LOC: EC 12:11
DX: H66.92 Otitis media, unspecified, left ear (principal); K21.9 Gastro-esophageal reflux disease without esophagitis; Z79.899 Other long term (current) drug therapy; Z88.8 Allergy status to other drugs, medicaments and biological substances; Z91.040 Latex allergy status; Z87.891 Personal history of nicotine dependence
CPT/HCPCS: 99282

== ENCOUNTER → 2020-06-15 | Outpatient (CLI) | payer OTHER ==
--- NOTE | 2020-06-15 16:01 | MR ---
EXAMINATION TYPE: MR brain wo con DATE OF EXAM: 06/15/2020 COMPARISON: None HISTORY: Migraine headaches, Light sensitivity CONTRAST: Performed utilizing 0 mL intravenous Gadavist gadolinium contrast. TECHNIQUE: Multiplanar, multiecho imaging on a 3.0 Iqra magnet is performed through the brain. Stud y is performed within 24 hours of arrival to the hospital. The craniovertebral junction is normal. The pituitary is normal. Diffusion-weighted imaging is performed. No abnormal hyperintensity is present to suggest an acute i ntracranial infarct or acute ischemic change. Signal within the brain appears normal. No suspicious hyperintense white matter changes typically ass ociated with migraine headaches is identified. Ventricles and sulci are appropriate for the patient age. There is a fluid type signal area within the pineal region. A small arachnoid cyst could be considere d. Recommend follow-up contrast study. This measures 1.0 x 0.8 x 1.7 cm in size. IMPRESSIONS: 1. No suspicious acute changes typically associated with migraine headaches. 2. There is a cystlike area within the extra-axial space at the level of pineal gland. An arachnoid c yst should be considered. Recommend contrast MRI brain for additional evaluation.
== END | disposition home or self-care (01) ==
LOC: RADMRIMAIN 14:45
PROVIDERS: ATTEND Psychiatry & Neurology Neurology
DX: G43.009 Migraine without aura, not intractable, without status migrainosus (principal); G93.89 Other specified disorders of brain
CPT/HCPCS: 70551

== ENCOUNTER → 2020-06-30 | Outpatient (CLI) | payer OTHER ==
--- NOTE | 2020-07-01 01:33 | MR ---
EXAMINATION TYPE: MR brain w con DATE OF EXAM: 06/30/2020 COMPARISON: 06/15/2020 HISTORY: Abnormal brain MRI follow up, contrast images to be compared with prior. Migraine without au ro and without status migrainosus, not intractable. CONTRAST: Standard multiplanar, multisequence MRI departmental protocol utilizing 6 mL intravenous Gadavist patrick olinium contrast. Multiplanar multiecho imaging of the brain was performed with IV contrast. FINDINGS: Ventricles and sulci appear normal. There is no mass effect nor midline shift. There is no sign of in tracranial hemorrhage. I see no pathologic enhancement there is normal enhancement of the venous sinu ses. There is oval-shaped area of fluid signal at the inferior aspect of the posterior corpus callosu m consistent with an arachnoid cyst. This is not changed in size compared to recent exam. There is a very thin rim of enhancement. The remainder of exam is unremarkable. 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 No change.
== END | disposition home or self-care (01) ==
LOC: RADMRIMAIN 16:59
PROVIDERS: ATTEND Psychiatry & Neurology Neurology
DX: G43.009 Migraine without aura, not intractable, without status migrainosus (principal); R90.89 Other abnormal findings on diagnostic imaging of central nervous system
CPT/HCPCS: 70552; A9585

== ENCOUNTER → 2020-12-22 | Outpatient (CLI) | payer OTHER ==
--- NOTE | 2020-12-22 15:08 | MM ---
Reason for exam: clinical finding. Baseline mammogram. History: Family history of breast cancer in brother at age 38, breast cancer in mother, and breast cancer in maternal aunt at age 40. Took hormonal contraceptives beginning at age 12. Physical Findings: Nurse did not find any significant physical abnormalities on exam. MG Diagnostic Mammo w CAD RAFA Bilateral CC and MLO view(s) were taken. The breast tissue is heterogeneously dense. This may lower the sensitivity of mammography. There is no discrete abnormality including area of concern. No marker, RN unable to palpate abnormality. These results were verbally communicated with the patient and result sheet given to the patient on 12/22/20. ASSESSMENT: Incomplete: need additional imaging evaluation, BI-RAD 0 RECOMMENDATION: Ultrasound of the left breast. (palpable by patient)
--- NOTE | 2020-12-22 15:09 | USB ---
Reason for exam: additional evaluation requested from abnormal screening. History: Family history of breast cancer in brother at age 38, breast cancer in mother, and breast cancer in maternal aunt at age 40. Took hormonal contraceptives beginning at age 12. US Breast Limited BILAT Right limited breast ultrasound including focal area of concern, retroareolar and axilla demonstrates no cystic or solid lesion seen. Left limited breast ultrasound including focal area of concern, retroareolar and axilla demonstrates no cystic or solid lesion seen. No lesion seen at right 3 o'clock and left 9 o'clock. These results were verbally communicated with the patient and result sheet given to the patient on 12/22/20. ASSESSMENT: Negative, BI-RAD 1 RECOMMENDATION: Routine screening mammogram of both breasts in 1 year. Manage patient on a clinical basis.
== END | disposition home or self-care (01) ==
LOC: RADMAMWWP 14:04
PROVIDERS: ATTEND Family Medicine
DX: R92.2 Inconclusive mammogram (principal); Z80.3 Family history of malignant neoplasm of breast; Z79.3 Long term (current) use of hormonal contraceptives
CPT/HCPCS: 77066

== ENCOUNTER → 2021-02-19 | Outpatient (CLI) | payer OTHER ==
--- NOTE | 2021-02-21 07:58 | CT ---
EXAMINATION TYPE: CT sinus wo con DATE OF EXAM: 02/19/2021 COMPARISON: None HISTORY: 40-year-old female Sinusitis, pain in LT side upper gums CT DLP: 287.8 mGycm Automated exposure control for dose reduction was used. TECHNIQUE: Noncontrast axial views of the paranasal sinuses were obtained. Coronal reconstructions pe rformed. FINDINGS: PARANASAL SINUSES: There is trace mucosal thickening posterior ethmoid air cells on both sides. Otherwise, the frontal, sphenoid, and maxillary sinuses are well pneumatized. There is no air-fluid level. Reactive vandana- osteogenesis is not seen. There is no destruction of the osseous smith of the paranasal sinuses. THE NASAL CAVITY: The osteomeatal complexes are patent. There is slight rightward nasal septal deviation. The imaged brain and orbits are normal in appearance. Mastoid air cells and middle ear cavities are well pneumatized. Reformatted images confirm above findings. IMPRESSION: Only trace mucosal thickening within the posterior ethmoid air cells on both sides. Otherwise, no sig nificant paranasal sinus disease. Very slight rightward nasal septal deviation.
== END | disposition home or self-care (01) ==
LOC: RADCTMAIN 14:05
PROVIDERS: ATTEND Otolaryngology
DX: J34.2 Deviated nasal septum (principal)
CPT/HCPCS: 70486

== ENCOUNTER → 2021-04-23 | Outpatient (CLI) | payer OTHER ==
--- NOTE | 2021-04-23 13:13 | XR ---
EXAMINATION TYPE: XR hand limited RT DATE OF EXAM: 04/23/2021 CLINICAL HISTORY: Pain after fall injury 2 days ago. TECHNIQUE: Frontal and lateral images of the right hand are obtained. COMPARISON: None. FINDINGS: There is no acute fracture/dislocation evident in the right hand. Possible old scaphoid in jury. Correlate clinically. Mild narrowing fifth PIP joint. The overlying soft tissue appears unrema rkable. IMPRESSION: There is no acute displaced fracture in the right hand.
== END | disposition home or self-care (01) ==
LOC: RADXRMAIN 12:17
PROVIDERS: ATTEND Internal Medicine
DX: S69.91XA Unspecified injury of right wrist, hand and finger(s), initial encounter (principal); M79.641 Pain in right hand; W19.XXXA Unspecified fall, initial encounter

== ENCOUNTER → 2021-12-25 | Outpatient (CLI) | payer OTHER ==
--- NOTE | 2022-01-04 09:18 | MM ---
Reason for Exam: Screening (asymptomatic). Last screening mammogram was performed 12 month(s) ago. Patient History: Menarche at age 11. First Full-Term at age 18. Hormonal Contraceptives, from age 12 until age 17. Maternal aunt had breast cancer, age 40. Brother had breast cancer, age 38. Mother had breast cancer. Risk Values: Cortney 5 year model risk: 2.7%. NCI Lifetime model risk: 42.5%. Prior Study Comparison: 12/22/2020 Bilateral Diagnostic Mammogram, [facility]. Tissue Density: The breast tissue is heterogeneously dense. This may lower the sensitivity of mammography. Findings: Analyzed By CAD. Asymmetric nodular density seen on the right MLO view 2 cm from the nipple. Additional views are recommended. No suspicious consultations identified. Overall Assessment: Incomplete: need additional imaging evaluation, BI-RAD 0 Management: Diagnostic Mammogram of the right breast. A clinical breast exam by your physician is recommended on an annual basis and results should be correlated with mammographic findings. Electronically signed and approved by: Silvano Wright M.D. Radiologis
== END | disposition home or self-care (01) ==
LOC: RADMAMWWP 21:16
PROVIDERS: ATTEND Nurse Practitioner Family
DX: Z12.31 Encounter for screening mammogram for malignant neoplasm of breast (principal); Z80.3 Family history of malignant neoplasm of breast
CPT/HCPCS: 77067

== ENCOUNTER → 2022-01-10 | Outpatient (CLI) | payer OTHER ==
--- NOTE | 2022-01-10 08:24 | MM ---
Reason for Exam: Additional evaluation requested from abnormal screening. Last screening mammogram was performed less than 1 month ago. Patient History: Menarche at age 11. First Full-Term at age 18. Premenopausal. Hormonal Contraceptives, from age 12 until age 17. Maternal aunt had breast cancer, age 40. Brother had breast cancer, age 38. Mother had breast cancer. Risk Values: Cortney 5 year model risk: 2.7%. NCI Lifetime model risk: 42.5%. Prior Study Comparison: 12/22/2020 Bilateral Diagnostic Mammogram, [facility]. 12/25/2021 Bilateral MG screening mammo w CAD, [facility]. Tissue Density: Right: The breast tissue is heterogeneously dense. This may lower the sensitivity of mammography. Findings: Analyzed By CAD. The asymmetric density projecting behind the retroareolar plane on the MLO view partially disperses on spot compression view. No clear persistence on the true lateral view. Additional ultrasound evaluation recommended. Overall Assessment: Incomplete: need additional imaging evaluation, BI-RAD 0 Management: Diagnostic Breast Ultrasound of the right breast. Electronically signed and approved by: Ady Parra M.D. Radiologist
--- NOTE | 2022-01-10 09:37 | USB ---
Patient History: Menarche at age 11. First Full-Term at age 18. Premenopausal. Hormonal Contraceptives, from age 12 until age 17. Maternal aunt had breast cancer, age 40. Brother had breast cancer, age 38. Mother had breast cancer. Risk Values: Cortney 5 year model risk: 2.7%. NCI Lifetime model risk: 42.5%. Prior Study Comparison: 12/22/2020 Bilateral Diagnostic Mammogram, [facility]. 12/25/2021 Bilateral MG screening mammo w CAD, [facility]. Findings: The whole breast of the right breast, the axilla of the right breast and the retroareolar of the right breast were scanned. There is dense tissue throughout. No solid or cystic lesion. No axillary lymphadenopathy or duct ectasia.. Overall Assessment: Probably benign, BI-RAD 3 Management: Diagnostic Mammogram of the right breast in 6 months. As a precautionary measure. Given the patient's five-year and lifetime risk for the development of breast cancer, recommend referral to a breast surgeon for discussion of genetic screening and high risk follow-up including future screening with alternating mammogram and breast MRI. Patient should continue monthly self breast exams. Electronically signed and approved by: Ady Parra M.D. Radiologist
== END | disposition home or self-care (01) ==
LOC: RADMAMWWP 07:33
PROVIDERS: ATTEND Family Medicine
DX: R92.8 Other abnormal and inconclusive findings on diagnostic imaging of breast (principal); Z80.3 Family history of malignant neoplasm of breast
CPT/HCPCS: 77065

== ENCOUNTER → 2022-07-11 | Outpatient (CLI) | payer OTHER ==
--- NOTE | 2022-07-11 13:13 | MM ---
Reason for Exam: Clinical finding. Last screening mammogram was performed 6 month(s) ago. Patient History: Menarche at age 11. First Full-Term at age 18. Premenopausal. Hormonal Contraceptives, from age 12 until age 17. Maternal aunt had breast cancer, age 40. Brother had breast cancer, age 38. Mother had breast cancer. Last menstrual period: 06/27/2022 Risk Values: Cortney 5 year model risk: 2.7%. NCI Lifetime model risk: 42.5%. Prior Study Comparison: 12/22/2020 Bilateral Diagnostic Mammogram, [facility]. 12/25/2021 Bilateral MG screening mammo w CAD, [facility]. 01/10/2022 Right MG work up mamm w CAD RT, [facility]. Tissue Density: Right: The breast tissue is heterogeneously dense. This may lower the sensitivity of mammography. Findings: Analyzed By CAD. The previous centrilobular located asymmetric density on the MLO view anterior depth has not persisted. No significant change from prior exams. Annual diagnostic follow-up recommended given patient's risk. Overall Assessment: Probably benign, BI-RAD 3 Management: Diagnostic Mammogram of both breasts in 6 months. In time for the patient's annual exam. Given the patient's lifetime risk for the development of breast cancer, recommend referral to a breast surgeon for discussion of genetic screening and high risk follow-up including future screening with alternating mammogram and breast MRI. Patient should continue monthly self breast exams. Negative results should not preclude additional follow-up of suspicious palpable abnormalities. Results were given to the patient verbally at the time of exam. Electronically signed and approved by: Ady Parra M.D. Radiologist
== END | disposition home or self-care (01) ==
LOC: RADMAMWWP 12:43
PROVIDERS: ATTEND Family Medicine
DX: R92.8 Other abnormal and inconclusive findings on diagnostic imaging of breast (principal); Z80.3 Family history of malignant neoplasm of breast
CPT/HCPCS: 77065; G0279; 77061

== ENCOUNTER 2022-08-20 09:30 | Day surgery (SDC) | payer OTHER ==
[2022-08-19 10:40] VITALS: BMI 25.2
[2022-08-20] MEDS ORDERED: LACTATED RINGERS 1,000 ML IV ONE (09:51)
[2022-08-20 09:53] VITALS: RESP 18; TEMP 97.3
[2022-08-20] MEDS ORDERED: LIDOCAINE 2% INJ 20 MG/ML (2 ML VIAL) ONE (09:55)
[2022-08-20] MEDS ORDERED: PROPOFOL 10 MG/ML 20 ML VIAL IV ONE (09:55)
--- NOTE | 2022-08-20 10:05 | P.PCN ---
Date of Procedure: 08/20/22 Procedure(s) Performed: BRIEF HISTORY: Patient is a 41-year-old, pleasant, white female scheduled for an upper endoscopy as a part of evaluation of long-standing history of GERD. She is presently Protonix 20 mg daily and Pepcid at bedtime and still remains symptomatic. PROCEDURE PERFORMED: Esophagogastroduodenoscopy with biopsy. PREOPERATIVE DIAGNOSIS: Long-standing History of GERD. IV sedation per anesthesia. PROCEDURE: After informed consent was obtained, the patient was brought into the endoscopy unit. IV sedation was administered by Anesthesia under continuous monitoring. Initially the Olympus GIF-140 video endoscope was inserted into the mouth. Esophagus intubated without any difficulty. It was gradually advanced into the stomach and duodenum and carefully examined. The bulb and the second part of the duodenum appeared normal. The scope at this time was withdrawn to the stomach, adequately insufflated with air, and upon careful examination, mucosa of the antrum, body, cardia and the fundus appeared normal. The scope was then withdrawn into the esophagus. The GE junction was located at 39 cm from the incisors. Small hiatal hernia noted. There was circumferential erythema the GE junction consistent with LA grade a reflux esophagitis. The rest of the esophagus appeared normal. There were no erosions or ulcerations seen and the patient tolerated the procedure well. IMPRESSION: 1. Mild antral gastritis. 2. Small hiatal hernia and LA grade A reflux esophagitis. RECOMMENDATIONS: The findings of this examination were discussed with the patient as well as a family. She was advised to start taking Protonix 40 mg daily half hour before dinner and Pepcid at bedtime and follow antireflux measures.
[2022-08-20 10:38] VITALS: BP 98/56; PULSE 75
== END 2022-08-20 10:54 | disposition home or self-care (01) ==
LOC: ORWHC2ENDO 09:30
PROVIDERS: ATTEND Internal Medicine Gastroenterology
DX: K29.50 Unspecified chronic gastritis without bleeding (principal); K44.9 Diaphragmatic hernia without obstruction or gangrene; K21.00 Gastro-esophageal reflux disease with esophagitis, without bleeding; J45.909 Unspecified asthma, uncomplicated; Z88.8 Allergy status to other drugs, medicaments and biological substances
CPT/HCPCS: 81025; 88305; 43239; J2704; J2001

== ENCOUNTER → 2023-02-01 | Outpatient (CLI) | payer OTHER ==
[2023-02-03 11:47] LABS: Alternaria alternata IgE <0.10 kU/L; Aspergillus fumagatus IgE <0.10 kU/L; Birch IgE <0.10 kU/L; Cat Epith & Dander IgE <0.10 kU/L; Ragweed,Common IgE <0.10 kU/L
[2023-02-03 11:48] LABS: Dermato. farinae IgE <0.10 kU/L; Dog Dander IgE <0.10 kU/L; Elm IgE <0.10 kU/L; Oak IgE <0.10 kU/L
== END | disposition home or self-care (01) ==
LOC: LABWHC1 08:46
PROVIDERS: ATTEND Internal Medicine
DX: J31.0 Chronic rhinitis (principal)
CPT/HCPCS: 36415; 86003

== ENCOUNTER → 2023-02-06 | Outpatient (CLI) | payer OTHER ==
--- NOTE | 2023-02-06 08:18 | MM ---
Reason for Exam: Follow-up at short interval from prior study. Last mammogram was performed 1 year(s) and 1 month(s) ago. Patient History: Menarche at age 11. First Full-Term at age 18. Premenopausal. Hormonal Contraceptives, from age 12 until age 17. Maternal aunt had breast cancer, age 40. Brother had breast cancer, age 38. Mother had breast cancer, age 35. Risk Values: Cortney 5 year model risk: 2.9%. NCI Lifetime model risk: 42.3%. Tissue Density: The breast tissue is heterogeneously dense. This may lower the sensitivity of mammography. Findings: Analyzed By CAD. No new suspicious masses, calcifications or distortions. Overall Assessment: Negative, BI-RAD 1 Management: Diagnostic Breast MRI of both breasts in 1 year. Given patient's elevated NCI lifetime model risk she should qualify for MRI breast cancer screening. Results were given to the patient verbally at the time of exam. Patient should continue monthly self-breast exams. A clinical breast exam by your physician is recommended on an annual basis. This exam should not preclude additional follow-up of suspicious palpable abnormalities. Note on Cortney scores and lifetime risk: 1. A Cortney score greater than 3% is considered moderate risk. If this is the case, consider specialist referral to assess eligibility for a risk reducing agent. 2. If overall lifetime risk for the development of breast cancer is 20% or higher, the patient may qualify for future screening with alternating mammogram and breast MRI. Electronically signed and approved by: Luis Alberto Good DO
== END ==
LOC: RADMAMWWP 07:34
PROVIDERS: ATTEND Internal Medicine
DX: R92.333 Mammographic heterogeneous density, bilateral breasts (principal); Z87.42 Personal history of other diseases of the female genital tract; Z80.3 Family history of malignant neoplasm of breast
CPT/HCPCS: 77066; G0279; 77062

== ENCOUNTER → 2024-09-27 | Outpatient (CLI) | payer OTHER ==
--- NOTE | 2024-09-28 07:21 | MM ---
Reason for Exam: Screening (asymptomatic). Last mammogram was performed 1 year(s) and 8 month(s) ago. Patient History: Menarche at age 11. First Full-Term at age 18. Premenopausal. Hormonal Contraceptives, from age 12 until age 17. Maternal aunt had breast cancer, age 40. Brother had breast cancer, age 38. Mother had breast cancer, age 35. Last menstrual period: 09/06/2024 Risk Values: Cortney 5 year model risk: 3.2%. NCI Lifetime model risk: 42.0%. Prior Study Comparison: 01/10/2022 Right MG work up mamm w CAD RT, [facility]. 07/11/2022 Right MG 3D diag mammo w/cad [facility], [facility]. 02/06/2023 Bilateral MG 3D diag mammo w/cad [facility], [facility]. Tissue Density: The breasts are heterogeneously dense, which may obscure small masses. Findings: Analyzed By CAD. There is no suspicious group of microcalcifications or new suspicious mass in either breast. Overall Assessment: Negative, BI-RAD 1 Management: Screening Mammogram of both breasts in 1 year. . Patient should continue monthly self-breast exams. A clinical breast exam by your physician is recommended on an annual basis. This exam should not preclude additional follow-up of suspicious palpable abnormalities. Note on Cortney scores and lifetime risk: 1. A Cortney score greater than 3% is considered moderate risk. If this is the case, consider specialist referral to assess eligibility for a risk reducing agent. 2. If overall lifetime risk for the development of breast cancer is 20% or higher, the patient may qualify for future screening with alternating mammogram and breast MRI. [facility], , 09/28/2024 7:17 AM. Electronically signed and approved by: Frederick Akhtar M.D.
== END | disposition home or self-care (01) ==
LOC: RADMAMWWP 15:34
PROVIDERS: ATTEND Family Medicine
DX: Z12.31 Encounter for screening mammogram for malignant neoplasm of breast (principal); R92.333 Mammographic heterogeneous density, bilateral breasts; Z92.0 Personal history of contraception; Z80.3 Family history of malignant neoplasm of breast
CPT/HCPCS: 77063; 77067

== ENCOUNTER → 2024-09-28 | Outpatient (CLI) | payer OTHER ==
--- NOTE | 2024-09-30 22:03 | MR ---
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 Stud y is performed within 24 hours of arrival to the hospital.Multiplanar, multiecho imaging on a 3.0 Grecia la magnet is performed through the knee. IV Contrast: 7 mL Gadobutrol (None, if empty) FINDINGS: The craniovertebral junction is normal. The pituitary is normal. Diffusion-weighted imaging is performed. No abnormal hyperintensity is present to suggest an acute i ntracranial infarct or acute ischemic change. Signal within the brain additional pulse sequences appe ars normal There is a hyperintense area within the pineal region measuring 1.2 x 1.9 cm. This previously measure d 1.3 x 1.0 cm. No abnormal enhancement is evident Ventricles and sulci are appropriate for the patient age. No suspicious enhancement evident. There is some minimal wall enhancement. The wall appears thin. The central portion appears to follow fluid signal IMPRESSION: 1. Pineal region cyst is slightly larger than the comparison study. [facility], , 09/30/2024 10:01 PM
== END | disposition home or self-care (01) ==
LOC: RADMRIMAIN 11:35
PROVIDERS: ATTEND Family Medicine
DX: G93.0 Cerebral cysts (principal); Z86.69 Personal history of other diseases of the nervous system and sense organs
CPT/HCPCS: 70553; A9585